=== PATIENT | male | born 1980 | race Caucasian/White ===

== ENCOUNTER 2019-09-25 11:52 | Emergency (ER) | payer OTHER, SELFPAY ==
[2019-09-25 12:07] VITALS: BP 129/82; PULSE 89; RESP 16; TEMP 36.6; O2SAT 100
--- NOTE | 2019-09-25 12:15 | ED.WOUNDLAC ---
HPI - Wound/Laceration General Chief Complaint: Wound/Laceration Stated Complaint: left leg wound Time Seen by Provider: 09/25/19 12:10 Source: patient and RN notes reviewed Mode of arrival: ambulatory Limitations: no limitations History of Present Illness HPI narrative: Patient presents today complaining of a wound to the left inner upper leg x2 weeks. Reports the area started out as a little pimple, possibly an ingrown hair, and has grown. It has significantly worsened overnight and is now putting out some clear drainage. He has been applying Neosporin. No history of staph or MRSA Related Data Home Medications Medication Instructions Recorded Confirmed escitalopram oxalate 20 mg PO DAILY 09/25/19 09/25/19 losartan-hydrochlorothiazide 1 tablet PO DAILY 09/25/19 09/25/19 Allergies Allergy/AdvReac Type Severity Reaction Status Date / Time No Known Allergies Allergy Verified 09/25/19 12:08 Review of Systems Review of Systems: Narrative: CONSTITUTIONAL: Denies body aches, fever, chills, or sweats. EYES: Denies visual changes, redness, or discharge. ENT: Denies rhinorrhea, congestion, sore throat, or otalgia. CARDIOVASCULAR: Denies chest pain, palpitations, or edema. RESPIRATORY: Denies cough or dyspnea. GASTROINTESTINAL: Denies abdominal pain, nausea, vomiting, or diarrhea. GENITOURINARY: Denies dysuria or hematuria. SKIN: Denies rash, itching. + Wound to left upper leg MUSCULOSKELETAL: Denies back pain, joint pain, or myalgia. NEUROLOGIC: Denies headache, numbness, tingling, or weakness. PSYCH: Denies depression or anxiety. PMFSH Comments At time of signature, I have reviewed and agree with nursing past medical, surgical, social and family history unless otherwise noted. Please see nursing chart for further information. There is no relevant family history pertinent to the presenting complaint Exam Narrative: Exam Narrative: GENERAL: Well-appearing, well-nourished, and in no acute distress. HEAD: Normocephalic, atraumatic. EYES: EOMI. No redness or drainage. Conjunctivae normal. ENT: Mucous membranes pink and moist. NECK: Normal AROM. CHEST: No respiratory distress. EXTREMITIES: Normal range of motion. No edema. SKIN: Warm, dry, no rash. Capillary refill normal. Normal skin turgor. 2x2 area of erythema and ecchymosis to left inner upper leg. 0.5x1.5cm open wound to center of ecchymosis. No induration or fluctuance noted. No active drainage. NEURO: No focal deficits. Alert and oriented x3. Gait steady. PSYCH: Normal affect. No signs of depression or anxiety. Course Vital Signs Vital signs: Vital Signs Temperature 97.8 F 09/25/19 12:07 Pulse Rate 89 09/25/19 12:07 Respiratory Rate 16 09/25/19 12:07 Blood Pressure 129/82 09/25/19 12:07 Pulse Oximetry 100 09/25/19 12:07 Temperature 97.8 F 09/25/19 12:07 Pulse Rate 89 09/25/19 12:07 Respiratory Rate 16 09/25/19 12:07 Blood Pressure 129/82 09/25/19 12:07 Pulse Oximetry 100 09/25/19 12:07 Reviewed. Pt has been instructed to follow up with his PCP regarding his elevated blood pressure today. MDM - Wound/Laceration Differential Diagnosis Differential diagnosis: Likely laceration, abscess, abrasion, avulsion of skin and other (Cellulitis) Critical Care Time Critical Care Time Critical Care Time: No Discharge Plan Discharge Clinical Impression: Open wound of leg Qualifiers: Encounter type: initial encounter Laterality: left Qualified Code(s): S81.802A - Unspecified open wound, left lower leg, initial encounter Cellulitis Qualifiers: Site of cellulitis: extremity Site of cellulitis of extremity: lower extremity Laterality: left Qualified Code(s): L03.116 - Cellulitis of left lower limb Patient Disposition: Home, Self-Care Condition: Stable Instructions: Antibiotic Form, Cellulitis (DC) Additional Instructions: Please take the Bactrim as prescribed until gone. Keep covered until scabbed over.
== END 2019-09-25 12:21 | disposition home or self-care (01) ==
PROVIDERS: Emergency Provider Nurse Practitioner; PCP Internal Medicine
DX: S71.102A Unspecified open wound, left thigh, initial encounter (principal); L03.116 Cellulitis of left lower limb; I10 Essential (primary) hypertension; X58.XXXA Exposure to other specified factors, initial encounter
CPT/HCPCS: 99203; G0463

== ENCOUNTER → 2021-02-21 03:18 | Outpatient (CLI) | payer OTHER, SELFPAY ==
[2021-02-21 17:35] LABS: SARS-CoV-2 RNA PCR Negative
== END ==
PROVIDERS: PCP Student in an Organized Health Care Education/Training Program; Visit Provider Nurse Practitioner Adult Health
DX: R68.89 Other general symptoms and signs (principal); Z20.822 Contact with and (suspected) exposure to COVID-19
CPT/HCPCS: C9803; U0003; U0005